=== PATIENT | female | born 1995 | race African-American/Black ===

== ENCOUNTER 2019-11-28 10:29 | Inpatient (IN) | payer OTHER, SELFPAY ==
[2019-11-28] VITALS (9 sets, daily range): BP systolic 118–139; BP diastolic 65–99; PULSE 71–135; RESP 16–22; TEMP 36.8–36.9; O2SAT 97–100; BMI 32.8
--- NOTE | ~2019-11-28 | CT_ITS ---
EXAMINATION: CTA brain carotid EXAM DATE: 11/28/2019 19:30 INDICATION: Seizure. History of brain aneurysm. TECHNIQUE: Noncontrast head CT. Spiral CTA of the carotid arteries was performed with intravenous i njection 100 cc of Omnipaque 350. Axial, coronal, sagittal reformatted images reviewed. Additional r eformatted images created on dedicated 3-D workstation. NASCET comparable standard used to assess th e degree of arterial stenosis. Spiral CT angiogram cerebral arteries performed with the same intrave nous injection of contrast. Source images of the brain CTA transferred to dedicated workstation for 3 -D rotational image creation. Coronal, sagittal maximum intensity pixel images also reviewed. The d ose-length product (DLP) for this examination was 1589.78 mGy-cm. The exposure was tailored accordi ng to patient size, and iterative reconstruction (ASIR) was used as additional dose reduction techniq ue. There is no prior study for comparison. FINDINGS: There is no carotid plaque, 0% carotid stenosis bilaterally. There is no carotid or verteb ral basilar arterial dissection or fibromuscular dysplasia. There are no cerebral artery aneurysms. T here is symmetric cerebral artery arborization. The sagittal, transverse and sigmoid sinuses enhance normally, no venous sinus thrombosis. Internal cerebral veins also enhance normally. There is moderate bilateral ethmoid mucoperiosteal thickening. There is left otomastoiditis fusion. T here is no acute intraparenchymal hemorrhage. No evidence of intraparenchymal brain mass lesion. No evidence of acute infarction. There is no mass effect or midline shift. There is no obstructive hydr ocephalus suspected. There are no extra-axial collections. There are no calvarial acute fractures. IMPRESSION: 1. No cervical arterial dissection or cerebral artery aneurysm. 2. Bilateral ethmoid mucoperiosteal thickening and left otomastoiditis fusion. Reviewed, dictated and finalized at location A.
--- NOTE | ~2019-11-28 | XR_ITS ---
XR chest 1V portable 11/30/2019 06:26 Indication: Respiratory distress. Procedure: AP portable chest Comparison: 11/29/2019 Findings: Endotracheal tube tip 2.3 cm above the alban. NG tube in the stomach. Heart size normal fo r technique. No focal air space disease, pulmonary edema, pleural effusion or suspected pneumothorax. No acute osseous abnormality. Impression: 1: No acute cardiopulmonary disease. Reviewed, dictated and finalized at location A. Impression: 1: No acute cardiopulmonary disease.
--- NOTE | ~2019-11-28 | XR_ITS ---
EXAMINATION: XR chest ET placement EXAM DATE: 11/29/2019 01:45 INDICATION: Intubated. Respiratory failure. TECHNIQUE: Portable AP frontal chest x-ray was obtained. There is no prior study for comparison. FINDINGS: Endotracheal tube tip is 3 centimeters above the alban (ideal range is between 2 to 5 cm). Feeding tube is in position. Possible small amount of right middle lobe airspace disease, could be aspiration, atelectasis or pneumonia. The lungs are otherwise clear. There are no pleural effusions. The cardiomediastinal silhouette is within normal limits. There is no pneumothorax suspected. The bones and soft tissues are unremarkable. IMPRESSION: 1. Tubes in position. 2. Possible right middle lobe subsegmental atelectasis and/or pneumonia or aspiration. Reviewed, dictated and finalized at location A. IMPRESSION: 1. Tubes in position. 2. Possible right middle lobe subsegmental atelectasis and/or pneumonia or asp iration.
--- NOTE | 2019-11-28 10:34 | ED.SEIZURE ---
HPI - Seizure General Chief Complaint: Seizure Stated Complaint: SEIZURE Time Seen by Provider: 11/28/19 10:34 Source: patient, EMS and RN notes reviewed Mode of arrival: EMS Limitations: clinical condition History of Present Illness HPI Narrative: Pt is a 23 y/o female presenting to the ED via EMS c/o Sz. EMS report the pt starting seizing about 15 minutes prior to arrival to the ED and ceased seizing upon arrival. Per EMS, the pt had not been responsive to answer questions en route to the ED. EMS state they administered 10 mg Valium IV, rt humeral IO, and Oxygen. Pt reports she regularly takes 1500 mg Keppra BID due to a Hx of Sz's, noting she did take her morning dose today. Pt states she is managed for her Sz's by her PCP at [facility], and notes she does not see a Neurologist. Pt denies any recent sickness, denying fever, chills, cough, ST, or insomnia. HPI is limited due to pt's clinical condition. Some information provided by EMS at bedside. Onset (ago): minute(s) (15) Seizure History: Yes Associated symptoms: denies other symptoms Related Data Home Medications Medication Instructions Recorded Confirmed levetiracetam [Keppra] 1,500 mg PO BID 11/28/19 lorazepam 11/28/19 sertraline 11/28/19 Allergies Allergy/AdvReac Type Severity Reaction Status Date / Time No Known Allergies Allergy Verified 11/28/19 10:59 Review of Systems Review of Systems: All systems reviewed & are unremarkable except as noted in HPI and below Constitutional: Constitutional: Denies chills, Denies difficulty sleeping and Denies fever(s) ENT: Denies sore throat Respiratory: Respiratory: Denies cough Neurologic: Reports seizure-like activity (Resolved) PMFSH Past Medical History Medical History Seizures Surgical History Surgical History No significant past surgical history Social History Social History Smoking status: Unknown if ever smoked Exam Const: General: cooperative, no acute distress and alert Nutritional Appearance: well nourished Limitations: no limitations HENMT: Mouth: Yes lip normal Eyes: Pupils: Equal, round and reactive pupils present EOM: EOMs intact bilaterally Resp: Effort & Inspection: normal respiratory effort Auscultation: clear to auscultation bilaterally Cardio: Rate: regular rate Rhythm: regular rhythm GI: GI Palp: Yes Soft to palpation and No Tenderness to palpation present (GI) Auscultation: normal bowel sounds Skin: General skin exam: normal color Neuro: General: no focal motor deficits and other (Drowsy but alert and answering question) Cognition (Neuro): normal cognition Speech: normal speech Other: No seizure activity Extrem: General: normal to inspection, full ROM and no clubbing, cyanosis or edema Other: Rt humeral IO in place Psych: Mental Status: mental status grossly normal Affect: normal affect Attitude: cooperative Course Course Emergency Course: Patient with prolonged seizure prior to arrival to the emergency department which ceased on arrival to the ED after having received Valium prehospital. Patient with recurrent seizure in the emergency department. Patient loaded with Keppra IV. Patient postictal but acting reasonably appropriate on reevaluation. Patient will be admitted to hospitalist service for further monitoring. Consultations Consultation #1: Discussed case with Hospitalist Dr. Zamorano. Accepted the pt for admission. Date: 11/28/19 Time: 12:17 Vital Signs Vital signs: Vital Signs Temperature 98.2 F 11/28/19 10:54 Pulse Rate 84 11/28/19 10:54 Respiratory Rate 16 11/28/19 10:54 Blood Pressure 122/84 11/28/19 10:54 Pulse Oximetry 100 11/28/19 10:54 Temperature 98.2 F 11/28/19 10:54 Pulse Rate 80 11/28/19 12:27 Respiratory Rate 16 11/28/19 12:27 Blood Pressure 122/72 11/28/19 12:
[2019-11-28 11:37] LABS: Basophils Percent Auto 0.2 % (0.2-1.2); Eosinophils Percent Auto 0.3 % (0-4.4); Hemoglobin 11.9 g/dL (12.0-15.0); Immature Granulocyte Absolute 0.06 K/mm3 (0.00-0.031); Immature Granulocyte Percent A 0.6 % (0-0.5); Lymphocytes Percent Auto 18.4 % (18.3-44.2); Mean Corpuscular HGB Conc 33.1 g/dl (32-36); Mean Corpuscular Hemoglobin 32.2 pg (26-34); Mean Corpuscular Volume 97.3 fl (80-100); Mean Platelet Volume 10.5 fl (7.4-10.4); Monocytes Absolute Auto 0.6 K/mm3 (0.1-0.6); Neutrophils Absolute Auto 6.9 K/mm3 (1.3-6.7); Neutrophils Percent Auto 74.5 % (45.5-73.1); Platelet Count Result 235 k/mm3 (150-375); Red Cell Distribution Width 12.8 % (11.5-14.5); White Blood Count 9.2 K/mm3 (4.5-10.0)
[2019-11-28] MEDS: levETIRAcetam 1000MG/NACL100ML 1,000 MG/100 ML BAG 400 MG IVPB (11:48)
[2019-11-28 11:57] LABS: Alanine Aminotransferase 10 U/L (4-35); Albumin Level 3.6 g/dL (3.5-5.1); Alkaline Phosphatase 103 U/L (38-126); Aspartate Amino Transferase 17 U/L (14-36); Bilirubin,Total 0.5 mg/dL (0.2-1.3); Blood Urea Nitrogen 7 mg/dL (7-17); Calcium 8.4 mg/dL (8.4-10.2); Carbon Dioxide 26 mmol/L (22-30); Chloride 107 mmol/L (98-107); Estimated CRCL calculation 124 ml/min; Estimated Glomerular Filt Rate > 60; Glucose 91 mg/dL (65-105); Potassium 3.2 mmol/L (3.4-5.0); Sodium 137 mmol/L (137-145)
[2019-11-28 12:29] LABS: Creatine Kinase 81 U/L (30-135)
--- NOTE | 2019-11-28 14:00 | ADMGEN ---
This patient, Myranda Rubin, was admitted to 3 [facility] Surg Room 319-01. Patient/family oriented to hospital policies and general routines including ID bracelet, bed and alarms, visiting hours, pain management, procedures, bathroom and other care routines, personal items, smoking policy, room service/diet, and visiting hours. Valuables list has been completed. Information on how to activate the Rapid Response Team has been discussed. Patient/Family are encouraged to report perceived risks to care and to ask questions if they do not understand what they are told or what they should do.
[2019-11-28 14:39] LABS: Add Urine Microscopic? YES; Appearance Urine Clear (Clear); Bilirubin Urine Negative (Negative); Blood Urine Negative (Negative); Color Urine Yellow (Yellow); Glucose Urine UA Negative (Negative); Ketones Urine Trace mg/dL (Negative); Leukocyte Esterase Ur Trace LEU/UL (Negative); Mucus Urine Rare /lpf; Nitrate Urine Negative (Negative); Protein Urine Negative (Negative); RBC Urine 0-2 /hpf (0-2); Specific Grav Ur 1.013 (1.001-1.035); Squamous Epithelial Cell Urine Moderate /hpf (Few); Urobilinogen Urine Negative mg/dL (<2.0); WBC Urine 0-3 /hpf
--- NOTE | 2019-11-28 15:30 | PM.IMHP ---
H&P: HPI History of Present Illness Chief complaint: Seizure. Narrative: Myranda Rubin is a 23-year-old female with history of seizures who presented to the emergency department earlier this morning via EMS from her place of employment for evaluation after having a seizure. The patient was diagnosed with epilepsy at the age of 15, and she admits that for many years ?I did not take it seriously? and was not always compliant with her medications. Over the last year so, however, she has been diligent about taking her medications. She continues to have seizures, maybe 2 times per month, and is now taking Keppra 1500 milligrams b.i.d. She is not under the care of a neurologist, however. In any event, she was in her usual state of health when she went to work this morning but she does not remember much after arriving to work. She was told that she was found in the bathroom at work, after going in there 30 minutes prior, and that she had likely had a seizure as she was postictal. She had another seizure while in the emergency department, and due to lack of IV access a right humeral IO was placed. She was loaded with Keppra 500 milligrams and is being admitted in this setting. Again, she states compliance with her home medications. She mentions that she was started on clonazepam a couple of weeks ago for anxiety, but has only taken a couple tablets. Also, she was told several years ago at [place] that she had a small aneurysm on brain CT, but has never had follow-up. At the time my evaluation, she is alert and oriented x4. She complains of discomfort in the right shoulder from recent IO placement as well as left ear pain. With further questioning, she has had pain and decreased hearing acuity in the left ear for the last several days. She denies headache. No vertigo or diplopia. No focal weakness or paresthesia. She denies fever, chills, and sweats. No sinus congestion, rhinorrhea, or odynophagia. Review of Systems Review of Systems: Narrative: Twelve systems reviewed with pertinent positives and negatives as per HPI. Except as documented, all other systems were reviewed and are negative. [facility] Past Medical History Medical History (Updated 11/28/19 @ 20:01 by Jyoti Kumar PA-C) Brain aneurysm Reported history of such. She never had follow-up. Seizures Surgical History Surgical History No significant past surgical history Family History Family History Sibling Microcephaly Mother Bipolar 1 disorder Father Pacemaker Cardiomyopathy Grandparent Cancer Social History Social History (Updated 11/28/19 @ 19:59 by Jyoti Kumar PA-C) Social History: The patient lives in [place] with her in 3 young sons, age 5 months, 1, and 3. Her mother is at home with her as well. She works for a [employer]. No tobacco use. Denies significant alcohol use. Occasional marijuana use. Patient wishes to be a full code. Smoking status: Unknown if ever smoked Smokeless tobacco user: other Additional smoking assessment comments: marijuana Alcohol intake: current Substance use: current Substance use type: marijuana Gender identity (if verbalized by the patient): Female Spiritual care concerns: No Agree to blood products: Yes Meds Home Medications and Allergies Home Medications Medication Instructions Recorded Confirmed Type clonazepam 0.5 mg PO BID PRN 11/28/19 11/28/19 History levetiracetam [Keppra] 1,500 mg PO BID 11/28/19 11/28/19 History sertraline 50 mg PO DAILY 11/28/19 11/28/19 History Allergies Allergy/AdvReac Type Severity Reaction Status Date / Time No Known Allergies Allergy Verified 11/28/19 10:59 Vital Signs Vital Signs - 24 hr 11/28/19 10:54 11/28/19 10:59 11/28/19 11:56 Temperature 98.2 F Pulse Rate 84 90 77 Respiratory Rate 16 16 Blood P
[2019-11-28 17:12] LABS: Amphetamine Screen Urine Negative (Negative); Barbiturate Screen Urine Negative (Negative); Benzodiazepines Screen Urine Positive (Negative); Cannabinoid Screen Urine Positive (Negative); Cocaine Screen Urine Negative (Negative); Methadone Screen Urine Negative (Negative); Opiate Screen Urine Negative (Negative); Phencyclidine Screen Urine Negative (Negative)
[2019-11-28 17:23] LABS: Beta HCG Quantitative < 2.39 mIU/ML
[2019-11-28] MEDS: POTASSIUM CHLORIDE 20 MEQ TABLET PO (17:25)
[2019-11-28] MEDS: AMOXICILLIN/CLAVULANATE K 875-125 MG TAB 1 TABLET PO (19:59)
[2019-11-28] MEDS: levETIRAcetam 500 MG TABLET 1500 MG PO (20:00)
[2019-11-28] MEDS: LORAZEPAM INJ 2 MG/ML VIAL (23:59)
[2019-11-29] VITALS (29 sets, daily range): BP systolic 111–139; BP diastolic 53–92; PULSE 56–127; RESP 14–26; TEMP 36.8–37.2; O2SAT 99–100; BMI 32.8
[2019-11-29] MEDS: ACETAMINOPHEN 650 MG SUPPOSITORY RECTAL (00:30)
[2019-11-29] MEDS: levETIRAcetam 500MG/NACL 100ML 500 MG/100 ML BAG 400 MG IVPB ×3 (00:30→20:40)
[2019-11-29] MEDS: levETIRAcetam 1000MG/NACL100ML 1,000 MG/100 ML BAG 400 MG IVPB ×3 (00:49→20:41)
[2019-11-29] MEDS: SODIUM CHLORIDE 0.9% IV 500 ML 30 ML (00:50)
--- NOTE | 2019-11-29 00:50 | P.RRN_ITS ---
Critical Care Event Note Summary Code activated: No Narrative: A rapid response was called 11/28/2019 at 11:54 p.m.. The patient had press the call light and by the time CNAs arrived in the room patient was having an active seizure. The patient was having tonic-clonic activity with rigid extended arms flexed at the wrist, rapid upward fluttering eye movements and clinched jaw. The patient was given 2 mg of IV Ativan when she had been seizing for 4 minutes. I was on the way to the patient's room when I was called because the patient was still seizing. An additional 2 mg of IV Ativan was administered. Neurology was contacted and an order for 1.5 grams of Keppra was ordered. When I arrived at the room the patient was still actively seizing. An order was given for 5 of Valium IVP. After 3-4 more minutes of seizure activity an additional 5 mg of Valium was administered. The patient's temperature was noted to be 99? and rectal Tylenol was ordered. The patient continued to be in status epilepticus. An additional 10 mg of IV Valium was administered. Approximately a minute and half later the patient was awake and talking to staff. Keppra was infusing at this time. The decision was made to transfer the patient to ICU for closer monitoring. The patient had sees for a total of 36 minutes at the time of transfer to the ICU. Before the patient could be transferred to the ICU bed the patient again began having seizure activity. An additional 10 mg of IV Valium was administered. Approximately minute later patient was awake and talking to staff again. The patient was only mildly postictal and was answering questions appropriately but easily distracted. I left the room to call Neurology with an update. No sooner than I hung up with the neurologist the patient again had a brief seizure. The seizure lasted less than 30 seconds. Shortly after that seizure the Keppra had finished infusing. I called the jack machine operator to notify him of the patient's condition and arrival to the ICU. Shortly after 1:00 a.m. the patient again developed seizure activity. The decision was made to intubate the patient for airway safety. The patient was given induction medications with propofol with an initial 150 mg induction. The patient no longer at obvious seizure activity per jaw was rigid. Subsequently patient was given another 50 mg of propofol and succinylcholine. The patient had a crowded airway and a large amount of bloody secretions posteriorly. It was difficult to advance the glide scope. The patient also had some posterior oral pharyngeal a edema. After suctioning vocal cords were visualized in the patient was intubated with a 7.5 ET tube measuring 23 cm at the lip. Shortly after intubation the patient was coughing against the vent and pulling at restraints. Additional sedation was given with for Versed and 50 mcg of fentanyl IV push x1. Propofol infusion was then initiated. Chest x-ray was reviewed ET tube in appropriate position. Radiologic interpretation pending. OG was also visualized on the chest x-ray with the tip in the stomach. 85 minutes was spent in critical care activities This case had a high probability of a clinically significant, sudden, or life threatening deterioration of this patient's condition which required my full and direct attention, intervention and personal management. Critical care time: 75 - 104 mins
--- NOTE | 2019-11-29 00:50 | PC.NURSE ---
Pt transfered from [address] [place] [address] pt was initially seizing and then woke up talking with staff then 15-20 min later started seizing again Dr Hess notified pt intubated
--- NOTE | 2019-11-29 00:53 | PC.NURSE ---
2353 Patient set off call light when aide responded, patient was having a seizure 235 Rapid Response called [id number] transported to ICU due to continued seizure activity
[2019-11-29 01:04] LABS: Glucose Point of Care 95 (65-105)
[2019-11-29] MEDS: RAPID SEQUENCE INTUBATION KIT 1 EACH (01:10)
[2019-11-29] MEDS: PROPOFOL IV EMULSION 100 ML 5 MG IV CONT (01:15)
--- NOTE | 2019-11-29 01:40 | P.PCNBED_ITS ---
Procedures Intubation: Intubation Date: 11/29/19 Intubation Time: 01:10 A pre- procedural Time-Out was completed immediately before starting the procedure and confirmed: Patient Identification, Site, Procedure, Patient Position and the Availability of Requisite Equipment: No Sedative: other (Propofol 200 mg) Mg given: 200 Paralytic: succinylcholine Mg given: 24 Laryngoscope: fiber optic video scope ET tube size: 7.5 Tube secured depth (cm): 23 Tube secured location: lips Tube placement confirmation: visualized tube passing through cords, equal breath sounds bilaterally, no breath sounds over epigastrium and confirmation by capnometry Patient tolerated procedure: well Intubation complications: difficult intubation Additional comments: Patient had a small mouth, crowded posterior oropharynx, bloody secretions and posterior oral pharyngeal edema. Patient was preoxygenated in her oxygen saturations remained greater than 96% throughout the entirety of the procedure.
[2019-11-29] MEDS: MIDAZOLAM HCL 2 MG/2 ML VIAL 4 MG IV PUSH (01:50)
[2019-11-29 03:00] LABS: Base Excess ABG -1.1 mEq/l (+/-2.0); Carboxyhemoglobin 0.3 % THb (0-2.0); Device VENTILATOR; Fractional Inspired Oxygen 40 %; HCO3 ABG 22.6 mEq/l (22.0-26.0); Methemoglobin ABG 0.7 %THb (0-1.5); Modified Allen's Test Pass; Oxygen Content ABG 17.4 %vol (16.0-22.0); Oxygen Saturation ABG 99.3 % (95.0-100.0); Oxyhemoglobin 97.5 % THb (90.0-100.0); PCO2 ABG 34.4 mmHg (35.0-45.0); PO2 ABG 186.6 mmHg (80.0-100.0); PO2 FiO2 Ratio Arterial Blood 4.66 %; Reduced Hemoglobin 1.5 %THb (0-5.0); Site Drawn RIGHT RADIAL; Total Hemoglobin 12.4 g/dL (12.0-18.0); pH ABG 7.435 (7.350-7.450)
[2019-11-29 03:01] LABS: Arterial Blood Gas PEEP 5 cmH2O; Arterial Blood Gas Tidal Volume 400 ml; Arterial Blood Gas Vent Mode CMV; Arterial Blood Gas Ventilator rate 14 /MIN
[2019-11-29 04:38] LABS: Blood Urea Nitrogen 3 mg/dL (7-17); Calcium 8.1 mg/dL (8.4-10.2); Carbon Dioxide 22 mmol/L (22-30); Chloride 111 mmol/L (98-107); Estimated CRCL calculation 150 ml/min; Estimated Glomerular Filt Rate > 60; Glucose 102 mg/dL (65-105); Magnesium 1.8 mg/dL (1.6-2.3); Sodium 137 mmol/L (137-145)
[2019-11-29] MEDS: PROPOFOL IV EMULSION 100 ML 35.3 MG IV CONT ×2 (05:08→08:08)
[2019-11-29 05:23] LABS: Alveolar/Arterial O2 Gradient 28.3 mmHg; Base Excess ABG 1.1 mEq/l (+/-2.0); Carboxyhemoglobin 0.3 % THb (0-2.0); Fractional Inspired Oxygen 30 %; HCO3 ABG 23.3 mEq/l (22.0-26.0); Methemoglobin ABG 0.7 %THb (0-1.5); Oxygen Content ABG 17.4 %vol (16.0-22.0); Oxygen Saturation ABG 99.1 % (95.0-100.0); Oxyhemoglobin 97.4 % THb (90.0-100.0); PCO2 ABG 29.9 mmHg (35.0-45.0); PO2 ABG 150.5 mmHg (80.0-100.0); PO2 FiO2 Ratio Arterial Blood 5.02 %; Reduced Hemoglobin 1.6 %THb (0-5.0); Total Hemoglobin 12.5 g/dL (12.0-18.0)
[2019-11-29 05:25] LABS: Arterial Blood Gas PEEP 5 cmH2O; Arterial Blood Gas Vent Mode CMV; Arterial Blood Gas Ventilator rate 14 /MIN; Device VENTILATOR; Modified Allen's Test Pass; Site Drawn RIGHT RADIAL
[2019-11-29 05:26] LABS: Arterial Blood Gas Tidal Volume 400 ml
[2019-11-29] MEDS: AMPICILLIN SODIUM/SULBACTAM 3 GM in SODIUM CHLORIDE 0.9% IV 100 ML IVPB ×4 (07:02→23:13)
[2019-11-29] MEDS: FAMOTIDINE 20 MG/2 ML VIAL IV PUSH ×2 (08:03→20:40)
[2019-11-29] MEDS: SERTRALINE HCL 50 MG TABLET PO (08:04)
[2019-11-29] MEDS: ENOXAPARIN 40 MG/0.4 ML SYRINGE SUB-Q (08:32)
[2019-11-29] MEDS: MIDAZOLAM HCL 50 MG in DEXTROSE 5% 90 ML IV CONT (08:36)
--- NOTE | 2019-11-29 08:59 | WPDCNINT ---
Assessment and Plan Assessment and plan (1) Generalized seizure: Code(s): R56.9 - Unspecified convulsions Status: Acute Assessment and Plan: patient presented with generalized tonic-clonic seizures., left otitis media could be a factor for seizure activity - Patient has been started on Keppra 1500 mg IV q.12 hours - neurology has been consulted - patient on propofol infusion. - CTA brain on 11/28/2019 common carotid, internal carotid and vertebral arteries are patent and unremarkable throughout the course. [place] patent no major intracranial artery stenosis or occlusion was seen, no intracranial aneurysm is identified. Left mastoid and middle ear effusion, mucosal thickening is seen in the paranasal sinuses. (2) Acute respiratory failure: Qualifiers: Respiratory failure complication: unspecified whether with hypoxia or hypercapnia Qualified Code(s): J96.00 - Acute respiratory failure, unspecified whether with hypoxia or hypercapnia Code(s): J96.00 - Acute respiratory failure, unspecified whether with hypoxia or hypercapnia Status: Acute Assessment and Plan: Patient was intubated for airway protection secondary to seizure activity - chest x-ray and ABGs reviewed, ventilator adjusted - continue propofol for sedation, will add Versed - daily sedation vacation and maintain RASS of 0 to -2 (3) Left otitis media: Qualifiers: Otitis media type: unspecified Qualified Code(s): H66.92 - Otitis media, unspecified, left ear Code(s): H66.92 - Otitis media, unspecified, left ear Status: Acute Assessment and Plan: patient with left otitis media, started on Unasyn - blood cultures have been obtained (4) Hypokalemia: Code(s): E87.6 - Hypokalemia Status: Acute Assessment and Plan: will replace potassium (5) DVT prophylaxis: Code(s): Z29.9 - Encounter for prophylactic measures, unspecified Status: Acute Assessment and Plan: DVT prophylaxis: Lovenox SQ. stress ulcer prophylaxis: Pepcid Additional Plan will discuss with family when available. Code status: Full code Critical care time spent: 44 minutes Due to a high probability of clinically significant, life threatening deterioration, the patient required my highest level of preparedness to intervene emergently and I personally spent this critical care time directly and personally managing the patient. This critical care time included obtaining a history; examining the patient; pulse oximetry; ordering and review of studies; arranging urgent treatment with development of a management plan; evaluation of patient's response to treatment; frequent reassessment; and discussions with other providers. It was exclusive of separately billable procedures and treating other patients and teaching time. Please see Assessment and Plan section and the rest of the note for further information on patient assessment and treatment Technical Support Director Consult Note Consult date: 11/29/19 Time Seen: 06:58 Reason for consult: seizures, acute respiratory failure for airway protection HPI: Myranda Rubin is a 23 year old female with history of seizures, brain aneurysm presented to the ED on 11/28/2019 via EMS from work after she had a seizure. A patient had another seizure in the ER patient was loaded with IV Keppra 1000 mg x1. And IO was placed in her for IV access. When the hospitalist team evaluated the patient she was alert and oriented x4. Overnight patient had another episode of seizures which according the nurses lasted about 30 minutes. Patient was given Valium and Ativan. Patient was intubated for airway protection and brought to the ICU for further management. Patient seen and examined the ICU, remains intubated on CMV mode of ventilation on 30% FiO2, sedated with propofol at 70 mcg. Patient is hemodynamically stable with adequate urine output. Patient does
--- NOTE | 2019-11-29 09:11 | PM.IMPN ---
Progress Note: A&P Assessment and Plan (1) Acute respiratory failure: Qualifiers: Respiratory failure complication: unspecified whether with hypoxia or hypercapnia Qualified Code(s): J96.00 - Acute respiratory failure, unspecified whether with hypoxia or hypercapnia Code(s): J96.00 - Acute respiratory failure, unspecified whether with hypoxia or hypercapnia Status: Acute Assessment and Plan: Due to status epilepticus Continue sedation and support (2) Breakthrough seizure: Code(s): G40.919 - Epilepsy, unspecified, intractable, without status epilepticus Status: Acute Assessment and Plan: Inadequate control on levetiracetam Continue 1500mg iv q 12 hours Neurology evaluation (3) Hypokalemia: Code(s): E87.6 - Hypokalemia Status: Acute Assessment and Plan: Supplement F/u lab (4) Left otitis media: Qualifiers: Otitis media type: unspecified Qualified Code(s): H66.92 - Otitis media, unspecified, left ear Code(s): H66.92 - Otitis media, unspecified, left ear Status: Acute Assessment and Plan: Continue Unasyn 11/28 Blood c/s drawn Subjective Date/time seen: 11/29/19 09:11 Interval history: F/u status epilepticus 23 y/o f admitted 11/27 with recurrent seizures. Required sedation and intubation for status epilepticus 11/27 PM. 11/28 remains in ICU sedated and ventilated. No further seizure activity. Review of Systems Review of Systems: ROS unobtainable: unobtainable due to endotracheal tube Exam Narrative: Exam Narrative: HEENT: Pupils midpoint and sluggish, sclerae nonicteric, ET tube and OG tube in place NECK: No JVD CHEST: Clear to auscultation. Normal effort. HEART: NL S1/S2, regular, no murmur ABDOMEN: BS+, soft, nontender, no mass, no bruits EXTREMITIES: No cyanosis, edema, or clubbing NEUROLOGIC: CN intact and symmetric to inspection. MUSCULOSKELETAL: appears symmetric w/o gross deformity PSYCH: sedated Objective Data Vital Signs Vital Signs: Vital Signs - 24 hr 11/28/19 10:54 11/28/19 10:59 11/28/19 11:56 Temperature 98.2 F Pulse Rate 84 90 77 Respiratory Rate 16 16 Blood Pressure 122/84 139/99 H Pulse Oximetry 100 97 03/19/20 12:27 11/28/19 13:30 11/28/19 16:00 Temperature Pulse Rate 80 87 89 Respiratory Rate 16 16 Blood Pressure 122/72 118/79 Pulse Oximetry 100 98 11/28/19 20:00 11/28/19 22:00 11/28/19 23:58 Temperature 98.4 F Pulse Rate 81 71 135 H Respiratory Rate 16 22 H Blood Pressure 121/65 136/71 Pulse Oximetry 100 100 11/29/19 00:00 11/29/19 00:09 11/29/19 00:20 Temperature 99 F Pulse Rate 127 H 103 H Respiratory Rate 24 H Blood Pressure 138/56 L Pulse Oximetry 100 11/29/19 00:30 11/29/19 00:40 11/29/19 01:05 Temperature 99 F 98.4 F Pulse Rate 81 90 Respiratory Rate 23 H Blood Pressure 133/80 Pulse Oximetry 100 100 11/29/19 01:23 11/29/19 02:50 11/29/19 03:00 Temperature Pulse Rate 117 H 84 68 Respiratory Rate 24 H 16 Blood Pressure 111/69 122/68 Pulse Oximetry 99 100 100 11/29/19 03:35 11/29/19 04:00 11/29/19 05:00 Temperature 98.2 F Pulse Rate 68 66 Respiratory Rate 16 14 Blood Pressure 128/80 Pulse Oximetry 100 100 100 11/29/19 05:26 Temperature Pulse Rate 84 Respiratory Rate Blood Pressure Pulse Oximetry 100 Intake/Output Intake/Output: Intake & Output 11/26/19 11/27/19 11/28/19 11/29/19 23:59 23:59 23:59 23:59 Intake Total 100 600 Output Total 300 600 Balance -200 0 Meds/Results Medications: Active Medications Generic Name Dose Route Start Last Admin Trade Name Freq PRN Reason Stop Dose Admin Clonazepam 0.5 mg 11/28/19 16:34 Klonopin Tablet PO BID PRN Anxiety Enoxaparin Sodium 40 mg 11/29/19 09:00 11/29/19 08:32 Lovenox SUB-Q 40 mg DAILY WENDY Administration Famotidine 20 mg 11/29/19 09:00 11/29/19 08:03 Pepcid Iv
[2019-11-29] MEDS: POTASSIUM CHLORIDE 20 MEQ TABLET 40 MEQ PO (09:52)
[2019-11-29] MEDS: PROPOFOL IV EMULSION 100 ML 25.2 MG IV CONT ×4 (11:23→23:00)
--- NOTE | 2019-11-29 12:55 | WPDNEURCNPN ---
Assessment and Plan Assessment and plan (1) DVT prophylaxis: Code(s): Z29.9 - Encounter for prophylactic measures, unspecified Status: Acute (2) Acute respiratory failure: Qualifiers: Respiratory failure complication: unspecified whether with hypoxia or hypercapnia Qualified Code(s): J96.00 - Acute respiratory failure, unspecified whether with hypoxia or hypercapnia Code(s): J96.00 - Acute respiratory failure, unspecified whether with hypoxia or hypercapnia Status: Acute (3) Hypokalemia: Code(s): E87.6 - Hypokalemia Status: Acute (4) Left otitis media: Qualifiers: Otitis media type: unspecified Qualified Code(s): H66.92 - Otitis media, unspecified, left ear Code(s): H66.92 - Otitis media, unspecified, left ear Status: Acute (5) Breakthrough seizure: Code(s): G40.919 - Epilepsy, unspecified, intractable, without status epilepticus Status: Acute (6) Generalized seizure: Code(s): R56.9 - Unspecified convulsions Status: Acute Additional Plan discussed with the I expect that if she does not have any more seizures in the next 24 to 48 hours she will be successfully extubated and will get back to her baseline present management needs to be continued Consult date: 11/29/19 Time Seen: 12:30 HPI: Myranda Rubin is a 23 year old female right handed who was exam I examined by this examiner in the intensive care unit in the presence of her at the bedside. The patient was brought in because of generalized tonic-clonic seizure followed by another 1 in the emergency room which has been well controlled she was intubated for airway protection as sedated however able to answer few questions follows commands quite well her tells me that she has had seizures since the age of 14 and has been on Keppra 1500 milligram twice a day more recently she was treated for middle ear infection with the antibiotics which have been continued here he also tells me that 1 time at [facility] there was a question about whether not she had a brain aneurysm however later on he was told that she does not have a bed and aneurysm more over her CTA of the brain performed here does not reveal any of that. Patient is doing fairly well at best I can tell she denies any headache nausea vomiting chest pain or shortness of breath Review of Systems Review of Systems: All systems reviewed & are unremarkable except as noted in HPI and below PMFSH Past Medical History Medical History Brain aneurysm Reported history of such. She never had follow-up. Seizures Surgical History Surgical History No significant past surgical history Family History Family History Sibling Microcephaly Mother Bipolar 1 disorder Father Pacemaker Cardiomyopathy Grandparent Cancer Social History Social History Social History: The patient lives in [place] with her in 3 young sons, age 5 months, 1, and 3. Her mother is at home with her as well. She works for a [employer] agency. No tobacco use. Denies significant alcohol use. Occasional marijuana use. Patient wishes to be a full code. Smoking status: Unknown if ever smoked Smokeless tobacco user: other Additional smoking assessment comments: marijuana Alcohol intake: current Substance use: current Substance use type: marijuana Gender identity (if verbalized by the patient): Female Spiritual care concerns: No Agree to blood products: Yes Meds Home Medications and Allergies Home Medications Medication Instructions Recorded Confirmed Type clonazepam 0.5 mg PO BID PRN 11/28/19 11/28/19 History levetiracetam [Keppra] 1,500 mg PO BID 11/28/19 11/28/19 History sertraline 50 mg PO DA
[2019-11-29] MEDS: LORAZEPAM INJ 2 MG/ML VIAL IV PUSH (13:06)
[2019-11-29] MEDS: PHENYTOIN SODIUM INJ 100 MG/2 ML VIAL (*BKC) IV PUSH (20:40)
[2019-11-30] VITALS (11 sets, daily range): BP systolic 99–122; BP diastolic 54–78; PULSE 50–92; RESP 14–25; TEMP 36.9–37.2; O2SAT 91–100
[2019-11-30] MEDS: PROPOFOL IV EMULSION 100 ML 25.2 MG IV CONT ×2 (02:19→06:07)
[2019-11-30 05:09] LABS: Alveolar/Arterial O2 Gradient 56.9 mmHg; Base Excess ABG 1.3 mEq/l (+/-2.0); Carboxyhemoglobin 0.2 % THb (0-2.0); Fractional Inspired Oxygen 30 %; HCO3 ABG 23.1 mEq/l (22.0-26.0); Methemoglobin ABG 0.5 %THb (0-1.5); Oxygen Content ABG 15.9 %vol (16.0-22.0); Oxygen Saturation ABG 98.8 % (95.0-100.0); Oxyhemoglobin 97.1 % THb (90.0-100.0); PCO2 ABG 28.1 mmHg (35.0-45.0); PO2 FiO2 Ratio Arterial Blood 4.13 %; Reduced Hemoglobin 2.2 %THb (0-5.0); Total Hemoglobin 11.5 g/dL (12.0-18.0)
[2019-11-30 05:11] LABS: Arterial Blood Gas PEEP 5 cmH2O; Arterial Blood Gas Tidal Volume 400 ml; Arterial Blood Gas Vent Mode CMV; Arterial Blood Gas Ventilator rate 14 /MIN; Device VENTILATOR; Modified Allen's Test Unable to perform; Site Drawn RIGHT RADIAL; pH ABG 7.533 (7.350-7.450)
[2019-11-30 05:12] LABS: Basophils Percent Auto 0.2 % (0.2-1.2); Eosinophils Absolute Auto 0.1 K/mm3 (0-0.3); Eosinophils Percent Auto 1.4 % (0-4.4); Hematocrit 30.8 % (37.0-47.0); Hemoglobin 10.5 g/dL (12.0-15.0); Immature Granulocyte Absolute 0.03 K/mm3 (0.00-0.031); Immature Granulocyte Percent A 0.5 % (0-0.5); Lymphocytes Absolute Auto 1.82 K/mm3 (0.9-3.2); Mean Corpuscular HGB Conc 34.1 g/dl (32-36); Mean Corpuscular Hemoglobin 32.2 pg (26-34); Mean Corpuscular Volume 94.5 fl (80-100); Mean Platelet Volume 10.7 fl (7.4-10.4); Monocytes Absolute Auto 0.6 K/mm3 (0.1-0.6); Monocytes Percent Auto 8.8 % (2.6-8.5); Neutrophils Absolute Auto 3.8 K/mm3 (1.3-6.7); Neutrophils Percent Auto 60.1 % (45.5-73.1); Platelet Count Result 235 k/mm3 (150-375); Red Blood Count 3.26 M/mm3 (4.2-5.4); Red Cell Distribution Width 12.9 % (11.5-14.5); White Blood Count 6.3 K/mm3 (4.5-10.0)
[2019-11-30 05:51] LABS: Alanine Aminotransferase 10 U/L (4-35); Albumin Level 2.9 g/dL (3.5-5.1); Alkaline Phosphatase 87 U/L (38-126); Aspartate Amino Transferase 18 U/L (14-36); Bilirubin,Total 0.3 mg/dL (0.2-1.3); Blood Urea Nitrogen 4 mg/dL (7-17); Calcium 7.6 mg/dL (8.4-10.2); Carbon Dioxide 24 mmol/L (22-30); Chloride 110 mmol/L (98-107); Estimated CRCL calculation 111 ml/min; Estimated Glomerular Filt Rate > 60; Glucose 105 mg/dL (65-105); Magnesium 1.9 mg/dL (1.6-2.3); Phosphorus 2.9 mg/dL (2.5-4.5); Potassium 2.7 mmol/L (3.4-5.0); Sodium 139 mmol/L (137-145)
[2019-11-30] MEDS: AMPICILLIN SODIUM/SULBACTAM 3 GM in SODIUM CHLORIDE 0.9% IV 100 ML IVPB (06:08)
[2019-11-30] MEDS: PHENYTOIN SODIUM INJ 100 MG/2 ML VIAL (*BKC) IV PUSH (06:09)
[2019-11-30] MEDS: levETIRAcetam 1000MG/NACL100ML 1,000 MG/100 ML BAG 400 MG IVPB (08:17)
[2019-11-30] MEDS: POTASSIUM CHLORIDE 20 MEQ PACKET (FOR LIQUID) 40 MEQ PO (08:17)
[2019-11-30] MEDS: FAMOTIDINE 20 MG/2 ML VIAL IV PUSH (08:21)
[2019-11-30] MEDS: ENOXAPARIN 40 MG/0.4 ML SYRINGE SUB-Q (08:21)
[2019-11-30] MEDS: SERTRALINE HCL 50 MG TABLET PO (08:21)
[2019-11-30] MEDS: levETIRAcetam 500MG/NACL 100ML 500 MG/100 ML BAG 400 MG IVPB (08:21)
--- NOTE | 2019-11-30 09:23 | WPDINTPN ---
Progress Note: A&P Assessment and Plan (1) Generalized seizure: Code(s): R56.9 - Unspecified convulsions Status: Acute Assessment and Plan: Patient presented with generalized tonic-clonic seizures. She was initially awake and alert and remain on the floor for few hours but then went into status epilepticus where she continued to have seizure for about 30 minutes. She was intubated on the floor and brought into the ICU. She did not reported any fever, headache and visual symptoms. She did not report any symptoms related to AR as well. - Patient has been started on Keppra 1500 mg IV q.12 hours - Neurology has been consulted. They are in 1st are appreciated. She was loaded with Dilantin yesterday and currently on maintenance dose of Dilantin. - She was on propofol infusion which was weaned. She woke up and was following commands. She was extubated successfully. She wants to leave AMA. Neurology was called who recommended her to be continued on her Keppra and in addition to that, she should be discharged on 300 mg of Dilantin. Primary medical team will arrange prescriptions To be sent over to pharmacy. - CTA brain on 11/28/2019 common carotid, internal carotid and vertebral arteries are patent and unremarkable throughout the course. [place] patent no major intracranial artery stenosis or occlusion was seen, no intracranial aneurysm is identified. Left mastoid and middle ear effusion, mucosal thickening is seen in the paranasal sinuses. (2) Acute respiratory failure: Qualifiers: Respiratory failure complication: unspecified whether with hypoxia or hypercapnia Qualified Code(s): J96.00 - Acute respiratory failure, unspecified whether with hypoxia or hypercapnia Code(s): J96.00 - Acute respiratory failure, unspecified whether with hypoxia or hypercapnia Status: Acute Assessment and Plan: Patient was intubated for airway protection secondary to seizure activity - chest x-ray and ABGs reviewed, ventilator adjusted - She was placed on SBT trial and was successfully extubated after she did well with SBT trial. (3) Left otitis media: Qualifiers: Otitis media type: unspecified Qualified Code(s): H66.92 - Otitis media, unspecified, left ear Code(s): H66.92 - Otitis media, unspecified, left ear Status: Acute Assessment and Plan: patient with left otitis media, started on Unasyn - Follow culture. - She did not report any symptoms of fever, headache, visual symptoms, nausea and vomiting at the time of presentation. low suspicion for acute meningitis/ encephalitis. She did not report any symptoms related to air with discharge or pain. (4) Hypokalemia: Code(s): E87.6 - Hypokalemia Status: Acute Assessment and Plan: will replace potassium And magnesium. Recheck BMP sometime later in the afternoon. (5) DVT prophylaxis: Code(s): Z29.9 - Encounter for prophylactic measures, unspecified Status: Acute Assessment and Plan: DVT prophylaxis: Lovenox SQ. stress ulcer prophylaxis: Pepcid Additional Plan will discuss with family when available. She was extubated successfully. She did well and tolerated. She had call her who seems to be at work and there is nobody to take care of the kids. She wants to leave the hospital. She was told the complications including status epilepticus, aspiration pneumonia and other possible issues but She does not want to stay. She understood the risk but still cannot stay in the hospital. Code status: Full code Critical care time spent: 36 minutes Due to a high probability of clinically significant, life threatening deterioration, the patient required my highest level of preparedness to intervene emergently and I personally spent this critical care time directly and personally managing the patient. This critical care time included obtaining a his
--- NOTE | 2019-11-30 11:55 | PM.IMPN ---
Subjective Date/time seen: 11/30/19 11:55 Objective Data Vital Signs Vital Signs: Vital Signs - 24 hr 11/29/19 12:00 11/29/19 12:25 11/29/19 14:00 Temperature 98.3 F Pulse Rate 65 93 56 L Respiratory Rate 14 14 Blood Pressure 122/66 120/70 Pulse Oximetry 100 100 100 11/29/19 14:54 11/29/19 16:00 11/29/19 17:15 Temperature 98.3 F Pulse Rate 66 67 67 Respiratory Rate 14 Blood Pressure 111/57 L Pulse Oximetry 100 100 100 11/29/19 18:00 11/29/19 18:09 11/29/19 20:00 Temperature 98.7 F Pulse Rate 78 78 61 Respiratory Rate 15 14 Blood Pressure 122/53 L 114/57 L Pulse Oximetry 99 100 11/29/19 20:45 11/29/19 21:58 11/29/19 23:31 Temperature Pulse Rate 59 L 58 L 76 Respiratory Rate 14 Blood Pressure 118/56 L Pulse Oximetry 100 100 100 11/30/19 00:00 11/30/19 02:00 11/30/19 02:15 Temperature 98.5 F Pulse Rate 66 92 76 Respiratory Rate 20 16 Blood Pressure 118/63 103/54 L Pulse Oximetry 100 97 100 11/30/19 03:49 11/30/19 04:00 11/30/19 05:18 Temperature 98.4 F Pulse Rate 56 L 55 L 55 L Respiratory Rate 25 H Blood Pressure 116/64 Pulse Oximetry 100 100 11/30/19 06:00 11/30/19 08:26 11/30/19 10:15 Temperature Pulse Rate 51 L 56 L Respiratory Rate 20 Blood Pressure 99/66 L Pulse Oximetry 91 100 98 Intake/Output Intake/Output: Intake & Output 11/27/19 11/28/19 11/29/19 11/30/19 23:59 23:59 23:59 23:59 Intake Total 100 2020 695 Output Total 300 1075 450 Balance -200 945 245 Meds/Results Medications: Active Medications Generic Name Dose Route Start Last Admin Trade Name Freq PRN Reason Stop Dose Admin Clonazepam 0.5 mg 11/28/19 16:34 Klonopin Tablet PO BID PRN Anxiety Enoxaparin Sodium 40 mg 11/29/19 09:00 11/30/19 08:21 Lovenox SUB-Q 40 mg DAILY WENDY Administration Famotidine 20 mg 11/29/19 09:00 11/30/19 08:21 Pepcid Iv IV PUSH 20 mg Q12HR WENDY Administration Propofol 100 mls @ 25.2 mls/hr 11/29/19 01:15 11/30/19 06:07 Diprivan IV CONT 50 mcg/kg/min .Q3H59M WENDY 25.2 mls/hr Administration Protocol 50 MCG/KG/MIN Ampicillin Sodium/Sulbactam 100 mls @ 200 mls/hr 11/29/19 06:00 11/30/19 06:38 Sodium 3 gm/ Sodium Chloride IVPB Infused Q6HR WENDY Infusion Midazolam HCl 50 mg/ Dextrose 100 mls @ 4 mls/hr 11/29/19 08:45 11/30/19 06:33 IV CONT 2 mg/hr .Q24H WENDY 4 mls/hr Titration Protocol 2 MG/HR Levetiracetam 1,000 mg in 100 mls @ 400 mls/hr 11/29/19 09:00 11/30/19 08:17 Keppra Iv IVPB 400 mls/hr Q12HR WENDY Administration Levetiracetam 500 mg in 100 mls @ 400 mls/hr 11/29/19 09:15 11/30/19 08:21 Keppra Iv IVPB 400 mls/hr Q12H WENDY Administration Potassium Chloride 500 mls @ 125 mls/hr 11/30/19 10:00 Kcl 40 Meq/D5w 500 Ml Peripheral IVPB 11/30/19 13:59 ONCE ONE Lorazepam 2 mg 11/28/19 23:55 11/29/19 13:06 Ativan Inj IV PUSH 2 mg Q3H PRN Administration seizure Multi-Ingred Cream/Lotion/Oil/Oint 1 applic 11/29/19 09:00 11/30/19 08:22 Lubrifresh Pm Eye Ointment EACH EYE 1 applic Q12HR WENDY Administration Phenytoin Sodium 100 mg 11/29/19 22:00 11/30/19 06:09 Dilantin IV PUSH 100 mg Q8HR WENDY Administration Sertraline HCl 50 mg 11/29/19 09:00 11/30/19 08:21 Zoloft PO 50 mg DAILY WENDY Administration Radiology Results: ITS Impressions Head/Neck CTA 11/29/19 09:54 IMPRESSION: 1. No cervical arterial dissection or cerebral artery aneurysm. 2. Bilateral ethmoid mucoperiosteal thickening and left otomastoiditis fusion. Chest X-Ray 11/30/19 07:46 Impression: 1: No acute cardiopulmonary disease. Labs Labs: Laboratory Results - last 24 hr 11/30/19 11/30/19 11/30/19 04:09 04:09 05:00 WBC 6.3 RBC 3.26 L Hgb 10.5 L Hct 30.8 L MCV 94.5 MCH 32.2 MCHC 34.1 RDW 12.9 Plt Count 235 MPV 10.7 H
--- NOTE | 2019-11-30 12:32 | PM.DS ---
DS: Diagnosis Admitting Diagnosis Admitting Diagnosis: Epilepsy, unspecified, intractable, without status epilepticus Discharge Diagnosis (1) Acute respiratory failure: Qualifiers: Respiratory failure complication: unspecified whether with hypoxia or hypercapnia Qualified Code(s): J96.00 - Acute respiratory failure, unspecified whether with hypoxia or hypercapnia Code(s): J96.00 - Acute respiratory failure, unspecified whether with hypoxia or hypercapnia Status: Acute Assessment and Plan: Due to status epilepticus Doing well off vent (2) Breakthrough seizure: Code(s): G40.919 - Epilepsy, unspecified, intractable, without status epilepticus Status: Acute Assessment and Plan: Inadequate control on levetiracetam at home Continue levetiracetam 1500mg PO q 12 hours Per neurology, added phenytoin 300mg PO q HS (3) Hypokalemia: Code(s): E87.6 - Hypokalemia Status: Acute Assessment and Plan: Supplemented (4) Left otitis media: Qualifiers: Otitis media type: unspecified Qualified Code(s): H66.92 - Otitis media, unspecified, left ear Code(s): H66.92 - Otitis media, unspecified, left ear Status: Acute Assessment and Plan: Unasyn while hospitalized, Augemtin upon discharge 11/29 Blood c/s negative thus far DS: Summary Hospital Course Reason for hospitalization: Status epilepticus Hospital Course: 28-year-old female was at work when she experienced a prolonged seizure. She received 10 mg of Valium on route to emergency department. While in emergency department she seized again received 500 mg of IV Keppra. She was admitted to intensive care intubated and seen by Neurology her Keppra 1500 mg every 12 hours was continued she received a loading dose of Dilantin and 100 mg IV every 8 hours. She had no further seizure activity. She was extubated on the morning of November 29. She was up and about without difficulty. Alert oriented person place and time. She felt it was imperative for her to go home to take tear her of her 3 children ages 3 years 1 year and 5 months because her family members were unwilling or unable to take care of them and her was being forced to go to work. A prolonged discussion ensued regarding her risk of recurrent seizure and which she stated she totally understood. However she felt that it was imperative that she go home to take care of her children because she felt that the children were not safe in the care of the family members. She stated she had no one but these unsafe family members to help take care of her children. And her was being forced to go to work. Time Spent with Patient Time attestation: Total time spent providing and/or coordinating discharge services: Exam Narrative: Exam Narrative: HEENT: EOMI, PERRL, sclerae nonicteric, pharyngeal mucosa pink and intact NECK: No JVD CHEST: Clear to auscultation. Normal effort. HEART: NL S1/S2, regular, no murmur ABDOMEN: BS+, soft, nontender, no mass, no bruits EXTREMITIES: No cyanosis, edema, or clubbing NEUROLOGIC: CN intact and symmetric to inspection. MUSCULOSKELETAL: Tone and strength symmetric. PSYCH: Alert. Oriented to person, place, and time. DS: Data Data Completed and Pending Labs on day of discharge: Labs from last 24 hours 11/30/19 11/30/19 11/30/19 05:00 04:09 04:09 WBC 6.3 RBC 3.26 L Hgb 10.5 L Hct 30.8 L MCV 94.5 MCH 32.2 MCHC 34.1 RDW 12.9 Plt Count 235 MPV 10.7 H Immature Gran % (Auto) 0.5 Neut % (Auto) 60.1 Lymph % (Auto) 29.0 Turner % (Auto) 8.8 H Eos % (Auto) 1.4 Baso % (Auto) 0.2 Lymph # (Auto) 1.82 Turner # (Auto) 0.6 Eos # (Auto) 0.1 Baso # (Auto) 0.0 Abs Immat Gran (auto) 0.03 Absolute Neuts (auto) 3.8 Absolute Nucleated RBC 0.0 Nucleated RBC % 0.0 Puncture Site Right radial ABG pH 7.533 H* ABG pCO2 28.1 L
[2019-12-02 07:34] LABS: Levetiracetam Keppra 52.3 mcg/mL (12.0-46.0)
== END 2019-11-30 13:00 | disposition home or self-care (01) | DRG 53 ==
LOC: ANHED 12:19 → ANH3MEDSUR 12:42 → ANHICU 11-29 01:27
PROVIDERS: Hospitalist; Internal Medicine; Physician Assistant; Admitting Provider Internal Medicine; Emergency Provider Emergency Medicine; PCP Family Medicine; Visit Provider Internal Medicine
DX: G40.901 Epilepsy, unspecified, not intractable, with status epilepticus (principal); E87.6 Hypokalemia; H66.92 Otitis media, unspecified, left ear; Z28.21 Immunization not carried out because of patient refusal
CPT/HCPCS: 31500; 36415; 36600; 70496; 70498; 71045; 80048; 80053; 80177; 80307; 81001; 82375; 82550; 82805; 83050; 83735; 84100; 84702; 85025; 87040; 87081; 94002; 94003; 96365; 96366; 96367; 96368; 96372; 96375; 96376; 99285; A9270; G0378; G0379; J0295; J1165; J1650; J1953; J2060; J2250; J2704; J3010; J3360; J3480; J7040; J7050; Q9967